=== PATIENT | male | born 1960 | race Caucasian/White ===

== ENCOUNTER 2017-01-01 14:57 | Emergency (ER) | payer BC ==
[~2017-01-01] VITALS: Ht 172.7 cm; Wt 95.2 kg
--- NOTE | ~2017-01-01 | CT2 ---
[facility] A Service of [facility] RADIOLOGY TEXT RESULTS PATIENT: JERRY TIAN LOCATION: [facility] : 60 UNIT #: [id number] AGE: [address]: Sunny Hernandez MD SEX: M ORDER DR: [id number] [facility] [address] [place], [place] [address] [id number] MR#: [id number] Acc #: [id number] NAME: JERRY TAIN. : 1960 SEX: M STUDY DATE/TIME: 01/01/2017 17:12 UNIT: [facility] ROOM: STUDY DESCRIPTION: CT Abd and Pelv W Cont Attending Physician: Sunny Hernandez M.D. Ordering Physician: Sunny Hernandez M.D. Primary Care Physician: Rosendo Ruiz Jr., M.D. MEDICAL IMAGING REPORT This report is preliminary unless electronic signature is present EXAM CT abdomen and pelvis with contrast 01/01/2017 HISTORY 56-year-old male with right-sided abdominal pain for [address] abdomen and pelvis 06/22/2015. TECHNIQUE Helical scan performed through the abdomen and pelvis following administration of IV contrast. Coronal and sagittal reformatted images. This CT examination was performed with one or more of the following radiation dose reduction techniques: automatic exposure control, adjustment of mA and/or kV according to patient size, and iterative reconstruction. FINDINGS Visualized lung bases are unremarkable. Diffuse fatty infiltration of the liver again noted. The spleen, pancreas, gallbladder, both adrenal glands, and both kidneys are unremarkable. Left renal cyst is unchanged. Abdominal aorta normal in course and caliber without dissection. Small bowel unremarkable without obstruction. Appendix is normal. There is mild pericolonic inflammatory stranding along the ascending colon. This may represent acute colitis in the appropriate clinical setting, possibly infectious or inflammatory. Remainder of the colon is unremarkable. No free fluid or free air. The urinary bladder and prostate gland are unremarkable. No free pelvic fluid. No acute bony abnormality. IMPRESSION [facility] A Service of [facility] RADIOLOGY TEXT RESULTS PATIENT: JERRY TIAN LOCATION: [facility] : 60 UNIT #: [id number] AGE: [address]: Sunny Hernandez MD SEX: M ORDER DR: 1. Mild pericolonic inflammatory stranding along the ascending colon. This may represent acute colitis in the appropriate clinical setting, possibly infectious or inflammatory in etiology. No evidence of perforation or abscess. 2. Normal appendix. 3. Hepatic steatosis. Dictated by... Johnnie Walters M.D. THIS IS AN ELECTRONICALLY VERIFIED REPORT Johnnie Wlaters M.D. at 01/02/2017 8:08 AM ROLY/danish TD: 01/02/2017 06:26 JOB #: [id number] MEDICAL IMAGING REPORT Page 1 of 1 COPY
[~2017-01-01 14:57] MED LIST: ALLERGY; BP MED; ERYTHROMYC3.5 GM OPT OD; NORCO1 TAB 10/3 PO; SYNTHROID0.1 MG
[2017-01-01 16:38] LABS: BASOPHIL% 0.2 % (0-2.5); EOSINOPHIL% 0.1 % (0.0-7.0); HEMATOCRIT 48.5 % (38.0-50.0); HEMOGLOBIN 16.2 gm/dL (13.0-16.0); LYMPHOCYTE# 1.7 X10e3 (1.0-3.5); LYMPHOCYTE% 7.9 % (17.0-45.0); MEAN CELL VOLUME 91.1 FL (83-96); MEAN CORPUSCULAR HEMOGLOBIN 30.4 PG (28-34); MEAN CORPUSCULAR HGB CONC 33.4 g/dL (30-36); MEAN PLATELET VOLUME 8.4 FL (6.5-11.5); MONOCYTE# 1.7 X10e3 (0-1.0); MONOCYTE% 8.2 % (3.0-12.0); NEUTROPHIL# 17.9 X10e3 (1.5-7.1); NEUTROPHIL% 83.6 % (40-75); PLATELET COUNT 245 X10e3 (140-420); RED BLOOD COUNT 5.32 X10e (3.90-5.60); RED CELL DISTRIBUTION WIDTH 14.8 % (11.0-15.5); WHITE BLOOD COUNT 21.4 X10e3 (4.0-10.5)
[2017-01-01 16:39] LABS: DIFF IND YES
[2017-01-01 16:48] LABS: ALBUMIN SERUM 4.3 g/dL (3.5-5.0); BILIRUBIN, DIRECT 0.2 mg/dL (0.0-0.2); BILIRUBIN,INDIRECT 0.6 mg/dL (0.0-0.9); BILIRUBIN,TOTAL 0.8 mg/dL (0.2-2.0); BUN/CREATININE RATIO 9.33; CREATININE SERUM 1.5 mg/dL (0.6-1.4); GLOM FILT RATE Estimated 51.3 mL/min (>60); POTASSIUM 4.1 mmol/L (3.5-5.1); PROTEIN TOTAL SERUM 7.8 g/dL (6.0-8.3)
[2017-01-01 17:04] LABS: ANISOCYTOSIS MOD; PLATELET ESTIMATE NORMAL (NORMAL); POIKILOCYTOSIS SL
== END 2017-01-01 19:50 | disposition home or self-care (01) ==
LOC: CED 14:57
PROVIDERS: Emergency Medicine
DX: R11.10 Vomiting, unspecified (principal); R19.7 Diarrhea, unspecified; R10.11 Right upper quadrant pain
CPT/HCPCS: 36415; 74177; 80048; 80076; 83690; 85025; 96361; 96374; 96375; 99284; J2270; J2405; Q9967